=== PATIENT | female | born 1940 | race Caucasian/White ===

== ENCOUNTER 2017-01-16 12:15 | Inpatient (IN) | payer MEDICARE ==
[~2017-01-16] VITALS: Ht 156.2 cm; Wt 69.1 kg
[2017-01-16] MEDS ORDERED: SODIUM CHLORIDE FLUSH 10ML SYR IVF ONE (13:00)
[2017-01-16 13:08] LABS: BLOOD UREA NITROGEN 30 mg/dL (7-18)
[2017-01-16] MEDS ORDERED: HYDROmorphone 1 MG/ML, 1ML ONE (13:09)
[2017-01-16 13:14] LABS: IS PT STATUS REG ER OR PRE ER? YES
[2017-01-16] MEDS ORDERED: HYDROmorphone 1 MG/ML, 1ML IVPush PRN (13:30)
[2017-01-16 16:22] VITALS: BP 114/66
[2017-01-16] MEDS ORDERED: BISACODYL 10 MG SUPP PR PRN (17:30)
[2017-01-16] MEDS ORDERED: ONDANSETRON 2MG/ML, 2ML IVPush PRN (17:30)
[2017-01-16] MEDS ORDERED: ACETAMINOPHEN 325 MG TABLET PO PRN (17:30)
[2017-01-16] MEDS ORDERED: morphine SULFATE 10 MG/ML, 1ML IVPush PRN (17:30)
[2017-01-16] MEDS ORDERED: DOCUSATE 100 MG CAPSULE PO PRN (17:30)
[2017-01-16] MEDS ORDERED: OXYcodone IR 5MG TABLET PO PRN (17:30)
[2017-01-16] MEDS ORDERED: ENALAPRILAT 1.25 MG/ML, 2ML IVPush PRN (17:30)
[2017-01-16] MEDS ORDERED: POLYETHYLENE GLYCOL 17 GM PACKET PO PRN (17:30)
[2017-01-16] MEDS ORDERED: LABETALOL 5MG/ML, 20ML IVPush PRN (17:30)
[2017-01-16] MEDS: SODIUM CHLORIDE 0.9% 1,000 ML IV SCH (18:13)
[2017-01-16] MEDS ORDERED: ISOS30TA8 PO (18:37)
[2017-01-16] MEDS ORDERED: LEVO75TA5 PO (18:41)
[2017-01-16] MEDS ORDERED: TICA90TA PO (18:41)
[2017-01-16] MEDS ORDERED: CALC-112 PO (18:41)
[2017-01-16] MEDS ORDERED: ASPI-496 PO (18:41)
[2017-01-16] MEDS ORDERED: MULT1TAB9 PO (18:41)
[2017-01-16 18:57] LABS: PATH.CAST-FLAG NOT PRESENT; SPERM-FLAG NOT PRESENT; SRC-FLAG NOT PRESENT; XTAL-FLAG NOT PRESENT; YLC-FLAG NOT PRESENT
[2017-01-16 20:09] VITALS: BP 110/71
[2017-01-16] MEDS: TICAGRELOR 90 MG TABLET PO SCH (20:33)
[2017-01-16 20:47] LABS: IS PT STATUS REG ER OR PRE ER? NO
[2017-01-16] MEDS ORDERED: MAGNESIUM SULFATE 4 GM in SODIUM CHLORIDE 0.9% 100 ML IV ONE (21:00)
[2017-01-17 02:10] VITALS: BP 132/75
[2017-01-17 02:48] LABS: IS PT STATUS REG ER OR PRE ER? NO
[2017-01-17 02:56] LABS: ASPARTATE AMINO TRANSFERASE 25 U/L (15-37); BLOOD UREA NITROGEN 31 mg/dL (7-18)
[2017-01-17] MEDS ORDERED: LEVOTHYROXINE 75 MCG TABLET PO SCH (06:00)
[2017-01-17] MEDS ORDERED: ASPIRIN 81 MG TABLET EC PO SCH (06:00)
[2017-01-17 07:30] VITALS: BP 136/82
[2017-01-17] MEDS: SODIUM CHLORIDE 0.9% 1,000 ML IV SCH (08:00)
[2017-01-17] MEDS: TICAGRELOR 90 MG TABLET PO SCH (08:10)
[2017-01-17] MEDS ORDERED: ISOSORBIDE MONONITRATE ER 30 MG TABLET PO SCH (09:00)
[2017-01-17] MEDS ORDERED: CALCIUM/VITAMIN D3 250-125 TABLET PO SCH (09:00)
[2017-01-17] MEDS ORDERED: MULTIVITAMIN 1 TABLET PO SCH (09:00)
[2017-01-17] MEDS ORDERED: MAGNESIUM SULFATE PMX 2GM/50ML 50 ML IV ONE (09:30)
[2017-01-17] MEDS ORDERED: MAGNESIUM CHLORIDE 64 MG TABLET.DR PO SCH (09:30)
[2017-01-17] MEDS ORDERED: METO25TA35 PO (10:09)
== END 2017-01-17 13:49 | disposition home or self-care (01) | DRG 302 ==
LOC: ED 13:15 → EDIP 13:50 → 5SO 16:04
PROVIDERS: ADMIT Internal Medicine; ATTEND Internal Medicine
DX: I25.10 Atherosclerotic heart disease of native coronary artery without angina pectoris (principal); N17.0 Acute kidney failure with tubular necrosis; R07.89 Other chest pain; E03.9 Hypothyroidism, unspecified; M54.2 Cervicalgia; I49.3 Ventricular premature depolarization; I25.2 Old myocardial infarction; Z95.5 Presence of coronary angioplasty implant and graft; Z79.82 Long term (current) use of aspirin; Z87.19 Personal history of other diseases of the digestive system; Z93.2 Ileostomy status; Z79.899 Other long term (current) drug therapy; Z88.2 Allergy status to sulfonamides; Z88.8 Allergy status to other drugs, medicaments and biological substances; I11.9 Hypertensive heart disease without heart failure
CPT/HCPCS: 36415; 71010; 80048; 80053; 80061; 81001; 82040; 83036; 83735; 83880; 84439; 84443; 84484; 85025; 85610; 85730; 87086; 93005; 96374; J1170; J3475; J7030